=== PATIENT | female | born 1955 | race Caucasian/White ===

== ENCOUNTER 2024-05-01 16:51 | Emergency (ER) | payer OTHER, BC ==
[2024-05-01] MEDS ORDERED: ONDANSETRON 4 MG/2 ML VIAL ONE (17:28)
[2024-05-01 17:40] LABS: Absolute Basophils 0.1 K/uL (0-0.5); Absolute Eosinophils 0.2 K/uL (0-0.5); Absolute Lymphocytes (CBC) 3.3 K/uL (0.7-4.9); Absolute Monocytes 0.8 K/uL (0.1-1.3); Absolute Neutrophil 4.7 K/uL (1.8-8.0); Basophils % 0.7 % (0-1.3); Eosinophils % 2.5 % (0-4.4); Hematocrit 40.1 % (36.0-45.0); Hemoglobin 13.5 g/dL (12.0-15.0); Lymphocytes % 36.5 % (15.3-44.8); MCH 31.1 pg (27.0-35.0); MCHC 33.6 g/dL (32.0-36.0); MCV 92.3 fL (80-100); MPV 8.6 fL (7.6-11.3); Monocytes % 8.3 % (3.3-12.3); Platelets 175 thou/uL (152-406); RBC Red Blood Cell Count 4.34 M/uL (3.86-4.86); Red Cell Distribution Width 12.6 % (12.1-15.2)
[2024-05-01 17:43] LABS: Specific Gravity < 1.005 (1.005-1.030); Sqamous Epithelial <5 /HPF (None Seen); Urine Bacteria <20 /HPF (<20); Urine Bilirubin NEGATIVE (Negative); Urine Blood 3+ (Negative); Urine Clarity Turbid (Clear); Urine Color Colorless (Yellow); Urine Culture Reflex Order NOT NEEDED; Urine Glucose NEGATIVE (Negative); Urine Ketones NEGATIVE (Negative); Urine Microscopic Reflex YN ORDER UMIC; Urine Mucus Slight /HPF (None Seen); Urine Nitrite NEGATIVE (Negative); Urine Protein NEGATIVE (Negative); Urine RBC <5 /HPF (None Seen); Urine Urobilinogen Normal (Normal); Urine WBC <5 /HPF (<5)
[2024-05-01 17:57] LABS: Albumin 3.9 g/dL (3.4-5.0); Albumin/Globulin Ratio 1.2 (1.1-1.8); Anion Gap 8.6 mEq/L (5.0-15.0); Bilirubin Total 0.5 mg/dL (0.2-1.0); Globulin 3.2 g/dL (2.3-3.5); Potassium 3.6 mEq/L (3.5-5.1); Protein, Total 7.1 g/dL (6.4-8.2)
[2024-05-01] MEDS ORDERED: MORPHINE 4 MG/ML SYR ONE (18:08)
--- NOTE | 2024-05-01 18:11 | RAD REPORT ---
EXAM DESCRIPTION: CT - Stone Protocol - 05/01/2024 5:48 pm CLINICAL HISTORY: Abdominal pain. Right flank pain COMPARISON: 2008 TECHNIQUE: Computed axial tomography of the abdomen pelvis was obtained without oral or IV contrast. Lack of IV and oral contrast limits evaluation of solid organs, appendix, bowel, and vessels. Ambrocio l reformatted images were obtained and reviewed. All CT scans are performed using dose optimization technique as appropriate and may include automated exposure control or mA/KV adjustment according to patient size. FINDINGS: Small bilateral renal calculi. Mild left hydronephrosis. 5 millimeter calculus proximal le ft ureter. Mild right hydronephrosis. 5 millimeter calculus mid right ureter The liver, spleen, pancreas and adrenals appear grossly normal There is no evidence of diverticulitis. The appendix appears normal Calcified uterine fibroids. 3.5 centimeter mass right adnexal contains solid and fatty components pre sumably a dermoid. No significant free fluid 10 millimeter sclerotic foci L2 vertebral body has developed since prior exam. Hemangioma is suspecte d within the L1 vertebral body IMPRESSION: 5 millimeter calculus mid right ureter results in mild right hydronephrosis 5 millimeter calculus proximal left ureter results in mild left hydronephrosis 3.5 centimeter mass right adnexal presumably a dermoid 10 millimeters sclerotic foci L2 vertebral body has developed since 2008. It may be benign or a blast ic metastasis
[2024-05-01] MEDS ORDERED: TAMSULOSIN 0.4 MG SR CAP ONE (19:33)
[2024-05-01] MEDS ORDERED: KETOROLAC 30 MG/ML INJ ONE (19:33)
[2024-05-01] MEDS ORDERED: MAGNESIUM SULFATE 1 gm IVPB 1 GM/100 ML BAG IV ONE (19:34)
--- NOTE | 2024-05-01 20:04 | EDPHYS ---
Physician Documentation [facility] Name: Kelly Jo Age: 69 yrs Sex: Female : 1955 Arrival Date: 05/01/2024 Time: 16:51 Bed 5 Private MD: ED Physician Kevan Sauceda HPI: 05/01 19:24 This 69 yrs old Female presents to ER via Ambulatory with complaints of Urinary Problem.rn 19:24 The patient presents with abdominal pain in the lower abdomen. Onset: The rn symptoms/episode began/occurred 2 day(s) ago. The symptoms do not radiate. Associated signs and symptoms: Pertinent positives: dysuria, hematuria, Pertinent negatives: blood in stools, fever. Modifying factors: The symptoms are alleviated by nothing, the symptoms are aggravated by nothing. Severity of pain: At its worst the pain was mild in the emergency department the pain is unchanged. The patient has experienced similar episodes in the past. The patient has not recently seen a physician. Historical: - Allergies: 17:16 Tape; tm6 17:16 Iodine; tm6 17:16 Diflucan; tm6 17:16 Cipro; tm6 17:16 dairy; tm6 17:16 alcohol; tm6 - PMHx: 18:00 Hypercholesterolemia; Thyroid Cancer; Bladder Cancer; Kidney stone; Back herniated disc;aa5 - PSHx: 18:00 Thyroidectomy; Bladder tumor x 2 removed (benign and cancerous); Ovaries removed; aa5 - Immunization history:: Client reports receiving the 2nd dose of the Covid vaccine. - Infectious Disease History:: Denies. - Social history:: Smoking status: Patient denies any tobacco usage or history of. Patient/guardian denies using alcohol. - Family history:: not pertinent. - Hospitalizations: : No recent hospitalization is reported. ROS: 19:24 Constitutional: Negative for fever, chills, and weight loss, Abdomen/GI: Positive for rn abdominal pain and nausea Back: Negative for injury and pain, : Positive for dysuria and hematuria Exam: 19:24 Constitutional: This is a well developed, well nourished patient who is awake, alert, rn and in no acute distress. Abdomen/GI: Soft, non-tender Vital Signs: 17:15 BP 142 / 91; Pulse 69; Resp 18; Temp 98.3(TE); Pulse Ox 100% on R/A; Weight 90.72 kg; tm6 Height 5 ft. 8 in. ; Pain 5/10; 19:14 BP 146 / 79; Pulse 53; Resp 15; Pulse Ox 99% on R/A; jb4 20:12 BP 140 / 70; Pulse 63; Resp 16; Pulse Ox 99% on R/A; kd3 17:15 Body Mass Index 30.41 (90.72 kg, 172.72 cm) tm6 17:15 Pain Scale: Adult tm6 MDM: 16:56 Patient medically screened. rn 20:01 Differential diagnosis: diverticulitis, non-specific abd pain, Pyelonephritis, rn Ureterolithiasis, urinary tract infection. Data reviewed: vital signs, nurses notes, lab test result(s), radiologic studies, CT scan, and as a result, I will discharge patient. Counseling: I had a detailed discussion with the patient and/or guardian regarding the historical points, exam findings, and any diagnostic results supporting the discharge/admit diagnosis, lab results, radiology results, the need for outpatient follow up, to return to the emergency department if symptoms worsen or persist or if there are any questions or concerns that arise at home. Response to treatment: the patient's symptoms have markedly improved after treatment. Special discussion: I discussed with the patient/guardian in detail that at this point there is no indication for admission to the hospital. It is understood, however, that if the symptoms persist or worsen the patient needs to return immediately for re-evaluation. ED course: Patient states feels better, has passed multiple kidney stones in the past, bilateral kidney stones that are 5 mm on each side, request to go home as she feels better. Feels ready to go home.. 05/01 17:10 Order name: CBC with Diff; Complete Time: 18:30 rn 05/01 17:10 Order name: CMP; Complete Time: 18:30 rn 05/01 17:10 Order name: Lipase; Complete Time: 18:30 rn 05/01 17:10 Order name: Urinalysis w/ reflexes; Complete Time: 18:30 rn 05/01 17:10 Order name: Pth,Intact; Complete Time: 19:12 rn 05/01 17:10 Order name: CT Stone Protocol rn 05/01 17:10 Order name: IV Saline Lock; Complete Time: 17:35 rn 05/01 17:10 Order name: Labs collected and sent; Complete Time: 17:35 rn Administered Medications: 17:50 Drug: Ondansetron IVP 4 mg IVP once; over 2 minutes Route: IVP; Site: right antecubital;aa5 18:34 Follow up: Response: No adverse reaction aa5 18:34 Drug: morphine IVP or IV 4 mg IVP once over 4 mins Route: IVP; Infused Over: 4 mins; aa5 Site: right antecubital; 18:45 Follow up: Response: No adverse reaction aa5 19:44 Drug: Flomax PO 0.4 mg PO once Route: PO; jb4 19:45 Drug: Ketorolac IVP 30 mg IVP once Route: IVP; Site: right antecubital; jb4 19:45 Drug: Magnesium Sulfate IVPB 1 grams IVPB once over 1 hrs Route: IVPB; Infused Over: 1 jb4 hrs; Site: right antecubital; Disposition Summary: 05/01/24 20:04 Discharge Ordered Notes: Location: Home rn Problem: new rn Symptoms: have improved rn Condition: Stable rn Diagnosis - Calculus of ureter rn Followup: rn - With: Private Physician - When: As needed - Reason: Recheck today's complaints, Re-evaluation by your physician Discharge Instructions: - Discharge Summary Sheet rn - Kidney Stones rn - Renal Colic rn Forms: - Medication Reconciliation Form rn - 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 Opioid Use rn - Patient Portal Instructions rn - Leadership Thank You Letter rn Prescriptions: - Flomax 0.4 mg Oral capsule - take 1 capsule ORAL route every 24 hours As needed; 10 capsule; Refills: 0, rn Product Selection Permitted - ondansetron 4 mg Oral Tablet,disintegrating - take 1 tablet ORAL route every 8 hours As needed; 12 tablet; Refills: 0, rn Product Selection Permitted - Ibuprofen 800 mg Oral Tablet - take 1 tablet ORAL route every 12 hours As needed take with food; 20 tablet; rn Refills: 0, Product Selection Permitted - Tramadol 50 mg Oral Tablet - take 1 tablet ORAL route every 8 hours as needed; 12 tablet; Refills: 0, rn Product Selection Permitted Signatures: Dispatcher [employer] Kevan Flynn MD MD rn Calderon, Audri, RN RN aa5 Flako Parks RN RN jb4 Alexandra, Tawney, RN RN tm6
--- NOTE | 2024-05-01 20:04 | ER ---
Nurse's Notes [facility] Name: Kelly Jo Age: 69 yrs Sex: Female : 1955 Arrival Date: 05/01/2024 Time: 16:51 Bed 5 Private MD: Diagnosis: Calculus of ureter Presentation: 05/01 17:15 Chief complaint: Patient states: abdominal cramps, diarrhea, n/v, back pain x2 days. tm6 Had dark brown urine. Coronavirus screen: Vaccine status: Patient reports receiving the 2nd dose of the covid vaccine. Ebola Screen: Patient negative for fever greater than or equal to 101.5 degrees Fahrenheit, and additional compatible Ebola Virus Disease symptoms Patient denies exposure to infectious person. Patient denies travel to an Ebola-affected area in the 21 days before illness onset. No symptoms or risks identified at this time. Initial Sepsis Screen: Does the patient meet any 2 criteria? No. Patient's initial sepsis screen is negative. Does the patient have a suspected source of infection? No. Patient's initial sepsis screen is negative. Risk Assessment: Do you want to hurt yourself or someone else? Patient reports no desire to harm self or others. Onset of symptoms was April 29, 2024. 17:15 Method Of Arrival: Ambulatory tm6 17:15 Acuity: MOHIT 3 tm6 Triage Assessment: 17:16 General: Appears in no apparent distress. Behavior is calm, cooperative. Pain: tm6 Complains of pain in low back area, left low back and abdomen Pain currently is 5 out of 10 on a pain scale. Pain began 2-3 days ago. EENT: No signs and/or symptoms were reported regarding the EENT system. Neuro: Level of Consciousness is awake, alert, obeys commands, Oriented to person, place, time, situation. Cardiovascular: Patient's skin is warm and dry. Respiratory: Airway is patent Respiratory effort is even, unlabored, Respiratory pattern is regular, symmetrical. GI: Abdomen is flat, non-distended, Reports cramping, diarrhea, nausea, vomiting. : Reports cramping, pain in lower back dark brown urine. Derm: No signs and/or symptoms reported regarding the dermatologic system. Musculoskeletal: No signs and/or symptoms reported regarding the musculoskeletal system. Historical: - Allergies: 17:16 Tape; tm6 17:16 Iodine; tm6 17:16 Diflucan; tm6 17:16 Cipro; tm6 17:16 dairy; tm6 17:16 alcohol; tm6 - PMHx: 18:00 Hypercholesterolemia; Thyroid Cancer; Bladder Cancer; Kidney stone; Back herniated disc;aa5 - PSHx: 18:00 Thyroidectomy; Bladder tumor x 2 removed (benign and cancerous); Ovaries removed; aa5 - Immunization history:: Client reports receiving the 2nd dose of the Covid vaccine. - Infectious Disease History:: Denies. - Social history:: Smoking status: Patient denies any tobacco usage or history of. Patient/guardian denies using alcohol. - Family history:: not pertinent. - Hospitalizations: : No recent hospitalization is reported. Screenin:20 [facility] ED Fall Risk Assessment (Adult) History of falling in the last 3 months, aa5 including since admission No falls in past 3 months (0 pts) Confusion or Disorientation No (0 pts) Intoxicated or Sedated No (0 pts) Impaired Gait No (0 pts) Mobility Assist Device Used No (0 pt) Altered Elimination No (0 pt) Score/Fall Risk Level 0 - 2 = Low Risk Oriented to surroundings, Maintained a safe environment, Educated pt \T\ family on fall prevention, incl call for assistance when getting out of bed. Abuse screen: Denies threats or abuse. Nutritional screening: No deficits noted. Tuberculosis screening: No symptoms or risk factors identified. Assessment: 17:20 General: Appears uncomfortable, Behavior is calm, cooperative. Pain: Complains of pain aa5 in right lower quadrant and right low back Pain currently is 5 out of 10 on a pain scale. Quality of pain is described as crampy, Is continuous. Neuro: Level of Consciousness is awake, alert, obeys commands, Oriented to person, place, time, situation. Cardiovascular: Patient's skin is warm and dry. Respiratory: Airway is patent Respiratory effort is even, unlabored, Respiratory pattern is regular, symmetrical. GI: Abdomen is round Bowel sounds present X 4 quads. Abd is soft and non tender X 4 quads. Reports diarrhea, nausea. : Reports dark colored urine. EENT: No signs and/or symptoms were reported regarding the EENT system. Derm: Skin is pink, warm \T\ dry. Musculoskeletal: Range of motion: intact in all extremities. 17:37 Reassessment: Patient appears in no apparent distress at this time. Patient and/or db family updated on plan of care and expected duration. Pain level reassessed. Patient is alert, oriented x 3, equal unlabored respirations, skin warm/dry/pink. GI: Reports lower abdominal pain. 18:35 Reassessment: Patient is alert, oriented x 3, equal unlabored respirations, skin aa5 warm/dry/pink. Nausea has improved. . 19:15 Reassessment: Patient appears in no apparent distress at this time. Patient and/or jb4 family updated on plan of care and expected duration. Pain level reassessed. Patient is alert, oriented x 3, equal unlabored respirations, skin warm/dry/pink. 20:11 General: Pt signed discharge paper work and provided prescriptions. PT on discharge kd3 hold for magnesium infusion, approximately 30 more minutes. . Vital Signs: 17:15 BP 142 / 91; Pulse 69; Resp 18; Temp 98.3(TE); Pulse Ox 100% on R/A; Weight 90.72 kg; tm6 Height 5 ft. 8 in. ; Pain 5/10; 19:14 BP 146 / 79; Pulse 53; Resp 15; Pulse Ox 99% on R/A; jb4 20:12 BP 140 / 70; Pulse 63; Resp 16; Pulse Ox 99% on R/A; kd3 17:15 Body Mass Index 30.41 (90.72 kg, 172.72 cm) tm6 17:15 Pain Scale: Adult tm6 ED Course: 16:54 Patient arrived in ED. mr 16:56 Kevan Sauceda MD is Attending Physician. rn 17:16 Triage completed. tm6 17:16 Arm band placed on right wrist. tm6 17:21 Ansley Cook, MICHAEL is Primary Nurse. aa5 17:32 Initial lab(s) drawn, by me, sent to lab. Inserted saline lock: 20 gauge in right db antecubital area, using aseptic technique. Blood collected. Flushed with 10 mL NS. 17:37 Patient has correct armband on for positive identification. Bed in low position. Call db light in reach. Side rails up X 1. Pulse ox on. NIBP on. Pillow given. 17:50 CT Stone Protocol In Process Unspecified. EDMS 19:00 Report given to MICHAEL Jean-Baptiste and MICHAEL Jones. aa5 19:00 No provider procedures requiring assistance completed. aa5 Administered Medications: 17:50 Drug: Ondansetron IVP 4 mg IVP once; over 2 minutes Route: IVP; Site: right antecubital;aa5 18:34 Follow up: Response: No adverse reaction aa5 18:34 Drug: morphine IVP or IV 4 mg IVP once over 4 mins Route: IVP; Infused Over: 4 mins; aa5 Site: right antecubital; 18:45 Follow up: Response: No adverse reaction aa5 19:44 Drug: Flomax PO 0.4 mg PO once Route: PO; jb4 19:45 Drug: Ketorolac IVP 30 mg IVP once Route: IVP; Site: right antecubital; jb4 19:45 Drug: Magnesium Sulfate IVPB 1 grams IVPB once over 1 hrs Route: IVPB; Infused Over: 1 jb4 hrs; Site: right antecubital; Medication: 19:00 VIS not applicable for this client. aa5 Outcome: 20:04 Discharge ordered by . rn 20:51 Patient left the ED. jb4 Signatures: Dispatcher [employer] EDMS Kelly Mcneal, Reg Reg mr Kevan Sauceda MD MD rn Calderon, Audri RN RN aa5 Flako Parks RN RN jb4 Jerilyn Flowers, MICHAEL RODRIGUEZ kd3 Isabella Alexis, MICHAEL RODRIGUEZ db Francis Morris RN RN tm6
[2024-05-01 21:00] VITALS: TEMP 98.3
[2024-05-01 21:01] VITALS: O2SAT 99
[2024-05-01 21:03] VITALS: BP 140/70
== END 2024-05-01 20:51 | disposition home or self-care (01) ==
LOC: ER 16:51
DX: N20.1 Calculus of ureter (principal); Z87.442 Personal history of urinary calculi; E78.00 Pure hypercholesterolemia, unspecified; Z85.51 Personal history of malignant neoplasm of bladder; Z85.850 Personal history of malignant neoplasm of thyroid
CPT/HCPCS: 85025; 81001; 36415; 83690; 83970; 80053; 76377; 74176; 96375; 96374; 99284; J3475; J2405